=== PATIENT | female | born 2005 | race Caucasian/White ===

== ENCOUNTER 2023-07-12 18:49 | Emergency (ER) | payer OTHER, SELFPAY ==
[2023-07-12 19:02] VITALS: BP 133/72; PULSE 66; RESP 16; TEMP 36.7; O2SAT 99
[2023-07-12 23:00] VITALS: BP 117/90; PULSE 64; RESP 14; O2SAT 99
--- NOTE | 2023-07-12 23:54 | ED.GENADULT ---
HPI - General Adult General Chief complaint: Unspecified Stated complaint: rectal bleeding Time Seen by Provider: 07/12/23 23:05 Source: patient Mode of arrival: ambulatory Limitations: no limitations History of Present Illness HPI narrative: This is a 17-year-old female who presents to the ED with chief complaint of rectal pain and bleeding ongoing for the past couple of days. Reports that she wiped today and saw blood on the toilet paper but had no blood in the toilet bowl. Reports that she feels like she is pooping glass. Reports having problems like this 1 time in the past but it self resolved. Denies abdominal pain, urinary symptoms, fevers, chills. Related Data Allergies Allergy/AdvReac Type Severity Reaction Status Date / Time No Known Allergies Allergy Verified 07/12/23 23:29 Review of Systems Review of Systems: All systems as dictated in HPI Exam Narrative: GENERAL: Well-appearing, well-nourished, and in no acute distress. HEAD: Normocephalic, atraumatic. EYES: PERRLA and EOMI. ENT: Nares clear, no rhinorrhea or epistaxis. Mucous membranes moist. Oropharynx without tonsillar hypertrophy exudate or other lesions. NECK: Supple. No adenopathy or masses. CHEST: No respiratory distress. Clear to auscultation. No wheezes rales or rhonchi HEART: Regular rate and rhythm. No murmur heard. Normal peripheral pulses. ABDOMEN: Soft, nontender, nondistended, normal active bowel sounds. MSK: Normal range of motion. No edema. SKIN: Warm, dry, no rash. NEURO: Alert and oriented x3. No focal deficits. PSYCH: Normal mood and affect. Rectal exam performed with female tech home visit field care manager present: When the patient bears down there is an obvious anal fissure to the posterior midline. No further lesions. Course Vital Signs Vital signs: Vital Signs Temperature 98.1 F 07/12/23 19:02 Pulse Rate 66 07/12/23 19:02 Respiratory Rate 16 07/12/23 19:02 Blood Pressure 133/72 07/12/23 19:02 Pulse Oximetry 99 07/12/23 19:02 Temperature 98.1 F 07/12/23 19:02 Pulse Rate 74 07/13/23 00:35 Respiratory Rate 15 07/13/23 00:35 Blood Pressure 115/87 07/13/23 00:35 Pulse Oximetry 99 07/13/23 00:35 Medical Decision Making MDM Narrative Medical decision making narrative: This is a 17-year-old female who presents to the ED with chief complaint of rectal pain and 1 episode of rectal bleeding bright red blood. Vitals are normal. Physical exam is benign. Rectal exam was done with female tech home visit field care manager present and does reveal evidence of anal fissure in the posterior midline. No steph blood noted. Her symptoms and presentation are certainly consistent with anal fissure. Supportive measures for home were discussed. Prescriptions for Anusol and docusate were given. GI referral given in case this does not self resolve over the next couple of weeks. Return precautions given. She is understanding and agreeable with plan for discharge and follow-up with primary care and/or GI. Vital Signs Vital Signs: Vital Signs Temperature 98.1 F 07/12/23 19:02 Pulse Rate 66 07/12/23 19:02 Respiratory Rate 16 07/12/23 19:02 Blood Pressure 133/72 07/12/23 19:02 Pulse Oximetry 99 07/12/23 19:02 Temperature 98.1 F 07/12/23 19:02 Pulse Rate 74 07/13/23 00:35 Respiratory Rate 15 07/13/23 00:35 Blood Pressure 115/87 07/13/23 00:35 Pulse Oximetry 99 07/13/23 00:35 Discharge Plan Discharge Clinical Impression: Anal fissure Patient Disposition: Home, Self-Care Condition: Stable Instructions: Antibiotic Form, Sitz Bath (DC) Additional Instructions: Your exam shows evidence of anal fissure. Anusol is a rectal steroid that will help with the pain. Docusate is a stool softener. Please make sure that you are using the sitz bath a couple of times per day as it will help with blood flow in the area and healing. If you have any new or worsening symptoms please retu
[2023-07-13 00:35] VITALS: BP 115/87; PULSE 74; RESP 15; O2SAT 99
== END 2023-07-13 00:38 | disposition home or self-care (01) ==
PROVIDERS: Emergency Provider Physician Assistant
DX: K60.2 Anal fissure, unspecified (principal)
CPT/HCPCS: 99283

== ENCOUNTER 2024-01-02 19:40 | Emergency (ER) | payer OTHER, SELFPAY ==
[2024-01-02 19:49] VITALS: BP 137/90; PULSE 85; RESP 16; TEMP 36.4; O2SAT 100
[2024-01-03 01:24] LABS: Basophils Percent Auto 0.3 % (0.2-1.2); Eosinophils Absolute Auto 0.4 K/mm3 (0-0.3); Eosinophils Percent Auto 3.2 % (0-4.4); Hematocrit 37.7 % (37.0-47.0); Hemoglobin 12.8 g/dL (12.0-15.0); Immature Granulocyte Absolute 0.03 K/mm3 (0.00-0.031); Immature Granulocyte Percent A 0.2 % (0-0.5); Lymphocytes Absolute Auto 3.37 K/mm3 (0.9-3.2); Lymphocytes Percent Auto 27.7 % (18.3-44.2); Mean Corpuscular Hemoglobin 31.1 pg (26-34); Mean Corpuscular Volume 91.5 fl (80-100); Mean Platelet Volume 10.6 fl (7.4-10.4); Monocytes Absolute Auto 0.9 K/mm3 (0.1-0.6); Monocytes Percent Auto 7.2 % (2.6-8.5); Neutrophils Absolute Auto 7.5 K/mm3 (1.3-6.7); Neutrophils Percent Auto 61.4 % (45.5-73.1); Platelet Count Result 238 k/mm3 (150-375); Red Blood Count 4.12 M/mm3 (4.2-5.4); Red Cell Distribution Width 11.6 % (11.5-14.5); White Blood Count 12.2 K/mm3 (4.5-10.0)
[2024-01-03 01:28] LABS: Alanine Aminotransferase 16 U/L (6-35); Albumin Level 4.2 g/dL (3.5-5.1); Alkaline Phosphatase 71 U/L (38-126); Anion Gap 6 mmol/L (4-12); Aspartate Amino Transferase 23 U/L (14-36); Bilirubin,Total 0.4 mg/dL (0.2-1.3); Blood Urea Nitrogen 13 mg/dL (7-17); Calcium 9.2 mg/dL (8.4-10.2); Carbon Dioxide 24 mmol/L (22-30); Chloride 105 mmol/L (98-107); Estimated CRCL calculation 127 ml/min; Estimated Glomerular Filt Rate > 60; Glucose 87 mg/dL (65-110); Potassium 3.9 mmol/L (3.4-5.0); Sodium 135 mmol/L (137-145)
[2024-01-03 01:56] LABS: Appearance Urine Clear (Clear); Bilirubin Urine Negative (Negative); Blood Urine Negative (Negative); Color Urine Yellow (Yellow); Glucose Urine UA Negative (Negative); Ketones Urine Negative (Negative); Leukocyte Esterase Ur Negative LEU/UL (Negative); Nitrate Urine Negative (Negative); Protein Urine Negative (Negative); Specific Grav Ur 1.009 (1.001-1.035); Urobilinogen Urine 0.2 mg/dL (<2.0); pH Urine 6.5 (5.0-9.0)
[2024-01-03 01:58] LABS: Add Urine Microscopic? NO
--- NOTE | 2024-01-03 03:09 | ED.GENADULT ---
HPI - General Adult General Chief complaint: GI Bleed Stated complaint: rectal bleeding Time Seen by Provider: 01/03/24 02:42 History of Present Illness HPI narrative: patient 18-year-old female who presents emergency department chief complaint of rectal bleeding. The patient reports she went to bathroom head of stool that was helpful like and reported that she has started having some bright red blood per rectum. The patient states she had anal fissure before in the past patient reports that the toilet bowl was filled with blood and she also had blood streaking in the stool and had blood on the toilet paper when she wiped. Patient denies lightheadedness denies nausea vomiting denies abdominal pain. Related Data Allergies Allergy/AdvReac Type Severity Reaction Status Date / Time No Known Allergies Allergy Verified 07/12/23 23:29 Review of Systems Review of Systems: A 10 system review of systems was completed on the patient and is negative except for what is stated in the HPI. Nursing and ancillary documentation was reviewed. Exam Narrative: GENERAL: Well-appearing, well-nourished, and in no acute distress. HEAD: Normocephalic, atraumatic. EYES: PERRLA and EOMI. ENT: Nares clear, no rhinorrhea or epistaxis. Mucous membranes moist. NECK: Supple. CHEST: Clear to auscultation. No respiratory distress. HEART: Regular rate and rhythm. No murmur heard. Normal peripheral pulses. ABDOMEN: Soft, nontender, nondistended, normal active bowel sounds. : Is rectal exam showed her probable internal hemorrhoid on exam with trace guaiac-positive stool EXTREMITIES: Normal range of motion. No edema. SKIN: Warm, dry, no rash. NEURO: No focal deficits. Alert and oriented x3. PSYCH: Normal mood and affect. Course Vital Signs Vital signs: Vital Signs Temperature 36.4 C 01/02/24 19:49 Pulse Rate 85 01/02/24 19:49 Respiratory Rate 16 01/02/24 19:49 Blood Pressure 137/90 01/02/24 19:49 Pulse Oximetry 100 01/02/24 19:49 Oxygen Delivery Room Air 01/02/24 19:49 Temperature 36.4 C 01/02/24 19:49 Pulse Rate 85 01/02/24 19:49 Respiratory Rate 16 01/02/24 19:49 Blood Pressure 137/90 01/02/24 19:49 Pulse Oximetry 100 01/02/24 19:49 Oxygen Delivery Room Air 01/02/24 19:49 Medical Decision Making MDM Narrative Medical decision making narrative: differential diagnosis includes internal hemorrhoids, anal fissure, laboratory studies were obtained on the patient showed a white count of 12.2 hemoglobin was 12.8 electrolytes are within normal limits urinalysis showed evidence UTI. The exam is consistent with a internal hemorrhoid the patient was started on hydrocortisone suppositories and discharged home follow-up with primary care provider Vital Signs Vital Signs: Vital Signs Temperature 36.4 C 01/02/24 19:49 Pulse Rate 85 01/02/24 19:49 Respiratory Rate 16 01/02/24 19:49 Blood Pressure 137/90 01/02/24 19:49 Pulse Oximetry 100 01/02/24 19:49 Oxygen Delivery Room Air 01/02/24 19:49 Temperature 36.4 C 01/02/24 19:49 Pulse Rate 85 01/02/24 19:49 Respiratory Rate 16 01/02/24 19:49 Blood Pressure 137/90 01/02/24 19:49 Pulse Oximetry 100 01/02/24 19:49 Oxygen Delivery Room Air 01/02/24 19:49 Lab Data 01/03/24 01:07 01/03/24 01:07 Labs: Lab Results 01/03/24 01/03/24 Range/Units 01:07 01:29 WBC 12.2 H (4.5-10.0) K/mm3 RBC 4.12 L (4.2-5.4) M/mm3 Hgb 12.8 (12.0-15.0) g/dL Hct 37.7 (37.0-47.0) % MCV 91.5 (80-100) fl MCH 31.1 (26-34) pg MCHC 34.0 (32-36) g/dl RDW 11.6 (11.5-14.5) % Plt Count 238 (150-375) k/mm3 MPV 10.6 H (7.4-10.4) fl Immature Gran % (Auto) 0.2 (0-0.5) % Neut % (Auto) 61.4 (45.5-73.1) % Lymph % (Auto) 27.7 (18.3-44.2) % [place] % (Auto) 7.2 (2.6-8.5) % Eos % (Auto) 3.2 (0-4.4) % Baso % (Auto) 0.3 (0.2-1.2) %
[2024-01-03 03:54] VITALS: BP 103/62; PULSE 54; RESP 16; O2SAT 100
== END 2024-01-03 03:55 | disposition home or self-care (01) ==
LOC: ANHED 01-03 03:38
PROVIDERS: Physician Assistant; Emergency Provider Emergency Medicine
DX: K64.8 Other hemorrhoids (principal)
CPT/HCPCS: 36415; 80053; 81003; 81025; 85025; 99283